=== PATIENT | female | born 1950 | race Caucasian/White ===

== ENCOUNTER 2019-02-07 07:07 | Outpatient (CLI) | payer MEDICARE, OTHER ==
[2019-02-07 10:16] LABS: #Basophils 0.1 thou/uL (0.0-0.2); #Eosinphils 0.1 thou/uL (0.0-0.7); #Lymphocytes 1.9 thou/uL (1.20-3.40); #Monocytes 0.5 thou/uL (0.11-0.59); #Neutrophils 2.4 thou/uL (1.40-6.50); %Basophils 1.2 % (0.0-1.0); %Lymphocytes 39.4 % (21.0-51.0); %Monocytes 9.1 % (0.0-10.0); %Neutrophils 48.3 % (42.0-75.0); Hemoglobin 14.1 g/dL (12.0-16.0); Mean Corpuscular HGB CONC 34.4 g/dL (32.0-36.0); Mean Corpuscular Hemoglobin 33.5 pg (27.0-31.0); Mean Corpuscular Volume 97.5 fL (78.0-98.0); Mean Platelet Volume 6.8 fL (7.4-10.4); Platelet Count 283 thou/uL (130-400); RBC Distribution Width 11.6 % (11.5-14.5); Red Blood Cell (RBC) Count 4.19 mill/uL (4.20-5.40); White Blood Cell (WBC) Count 4.9 thou/uL (4.8-10.8)
[2019-02-07 10:28] LABS: Bilirubin Negative (Negative); Blood, Urine Negative (Negative); Clarity Turbid (Clear); Glucose, Urine (Dipstick) Normal (Negative); Leukocyte 500 Leu/uL (Negative); Nitrite Negative (Negative); Protein, Urine (Dipstick) Negative (Neg-Trace); Squamous Epithelial 21-50 HPF (0-3); Urobilinogen Normal mg/dL (Less than 2)
[2019-02-07 10:35] LABS: Bacteria/HPF 2+ HPF (None Seen)
[2019-02-07 10:35] LABS: ALT (SGPT) 22 U/L (8-55); AST (SGOT) 21 U/L (5-34); Albumin 4.3 g/dL (3.4-4.8); Alkaline Phosphatase 99 U/L (40-110); Anion Gap 12 mmol/L (10-20); BUN (Urea Nitrogen) 21 mg/dL (9.8-20.1); Bilirubin, Total 0.7 mg/dL (0.2-1.2); Calc. Creatinine Clearance 0 mL/min (70-130); Calcium 9.5 mg/dL (7.8-10.44); Carbon Dioxide 28 mmol/L (23-31); Chloride 103 mmol/L (98-107); Estimated GFR-MDRD 65; Globulin 2.6 g/dL (2.4-3.5); Glucose 81 mg/dL (80-115); Potassium 3.8 mmol/L (3.5-5.1); Protein, Total 6.9 g/dL (6.0-8.3); Sodium 139 mmol/L (136-145)
== END 2019-02-07 07:08 | disposition home or self-care (01) ==
LOC: LABBT 07:07
PROVIDERS: ATTEND Orthopaedic Surgery Hand Surgery
DX: Z01.818 Encounter for other preprocedural examination (principal); Z13.9 Encounter for screening, unspecified; Z13.228 Encounter for screening for other metabolic disorders; G56.03 Carpal tunnel syndrome, bilateral upper limbs
CPT/HCPCS: 80053; 81001; 85025; 93005; 93010

== ENCOUNTER 2019-02-09 05:36 | Day surgery (SDC) | payer MEDICARE, OTHER ==
[2019-02-07 09:18] VITALS: BMI 25.0
[2019-02-09] MEDS ORDERED: Betamet Acet/Betamet Na Ph 30 MG/5 ML VIAL ONE ×2 (06:48→07:32)
[2019-02-09] MEDS ORDERED: Bupivacaine PF 0.5% 30 ML VIAL ONE ×2 (06:48→07:32)
[2019-02-09] MEDS ORDERED: Bacitracin Zinc Ointment 30 gm TUBE ONE (06:48)
[2019-02-09] MEDS ORDERED: Sodium Chloride 0.9% 10 ML ONE (06:49)
[2019-02-09] MEDS ORDERED: Midazolam HCl 2 mg/2 ml Vial ONE (07:05)
[2019-02-09] MEDS ORDERED: Fentanyl 100 MCG/2 ML VIAL ONE (07:05)
--- NOTE | 2019-02-09 15:31 | OP ---
DATE OF PROCEDURE: 02/09/2019 PREOPERATIVE DIAGNOSES: Right and left carpal tunnel syndrome. POSTOPERATIVE DIAGNOSES: Right and left carpal tunnel syndrome. FINDINGS: Very tight transverse carpal ligament on both sides with stippling over 2 cm area in early allograft formation on the right and stippling over 1 cm area without allograft formation on the left. PROCEDURES PERFORMED: 1. Right open carpal tunnel release. 2. Left open carpal tunnel release. 4 mL of Celestone drip technique over the nerve at the end of procedure on both sides. ANESTHESIA: General, LMA technique augmented by 15 mL of 0.5% Marcaine block at each side. DESCRIPTION OF PROCEDURE: After successful general endotracheal anesthesia, limb was prepped and draped. The patient had each side prepped and draped simultaneously with tourniquet applied. We outlined incision on both sides, which was a 2-cm mini-carpal tunnel incision technique with beginning 5 to 6 mm distal to the volar wrist flexion crease in line with the ring finger. After injecting the Marcaine in right and left, we then waited 3 minutes and exsanguinated the limb on the right side, inflated tourniquet to 250 mmHg pressure. Incision was carried through skin and subcutaneous tissue to reach the fat over the palmaris longus and just on the ulnar aspect of palmaris longus, began the carpal tunnel release with a [place] blade. We opened the carpal tunnel/transverse carpal ligament from the midpoint distally under direct visualization. We then elevated the skin, and visualized transverse carpal ligament from the midpoint proximal and released it under direct visualization with combination of [place] blade and tenotomy scissors. The right side nerve showed an area of almost 2 cm of stippling erythema and early allograft formation. We then placed 4 mL of Celestone in the wound, deflated the tourniquet and obtained hemostasis. We closed the incision with interrupted 4-0 nylon in a mattress pattern. The mirror-image procedure was performed on the left side. The tourniquet time was now 14 minutes and the stippling pattern difference was described was noted. The patient left the operating room with bulky dressing and no evidence of anesthetic or operative complication. Job ID: [id number]
[2019-02-09] MEDS ORDERED: Ketorolac Tromethamine 30 MG/ML VIAL ONE (15:56)
[2019-02-09] MEDS ORDERED: ePHEDrine 50 MG/ML VIAL ONE (15:56)
[2019-02-09] MEDS ORDERED: PROPOFOL 200 MG/20 ML VIAL ONE (15:56)
[2019-02-09] MEDS ORDERED: Lidocaine 1% PF 5 ML VIAL ONE (15:56)
[2019-02-09] MEDS ORDERED: Ondansetron PF 4 MG/2 ML Vial ONE (15:56)
[2019-02-09] MEDS ORDERED: Dexamethasone 20 MG/5 ML VIAL ONE (15:56)
== END 2019-02-09 10:10 | disposition home or self-care (01) ==
LOC: SDC 05:36
PROVIDERS: ATTEND Orthopaedic Surgery Hand Surgery
PROC: 01N50ZZ Release Median Nerve, Open Approach (ICD-10-PCS; principal; 2019-02-09)
PROC: 01N50ZZ Release Median Nerve, Open Approach (ICD-10-PCS; 2019-02-09)
DX: G56.03 Carpal tunnel syndrome, bilateral upper limbs (principal); E89.0 Postprocedural hypothyroidism; Z79.82 Long term (current) use of aspirin; Z79.899 Other long term (current) drug therapy; Z88.8 Allergy status to other drugs, medicaments and biological substances; Z91.013 Allergy to seafood
CPT/HCPCS: J0690; J0702; J1100; J1885; J2001; J2250; J2405; J2704; J3010; J3490; S0020